=== PATIENT | female | born 2000 | race Caucasian/White ===

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

== ENCOUNTER 2022-02-13 08:09 | Emergency (ER) | payer BC ==
[2022-02-13] MEDS ORDERED: Azithromycin 250 MG Tab PO STA (08:52)
[2022-02-13 10:05] LABS: C. TRACHOMATIS BY PCR DETECTED; N. GONORRHOEAE BY PCR NOT DETECTED
== END 2022-02-13 09:07 | disposition home or self-care (01) ==
LOC: MW.ED 08:09
DX: Z20.2 Contact with and (suspected) exposure to infections with a predominantly sexual mode of transmission (principal)
CPT/HCPCS: 87480; 87491; 87510; 87591; 87660; 99283; A9270